=== PATIENT | female | born 2000 | race Caucasian/White ===

== ENCOUNTER 2025-09-09 12:39 | Emergency (ER) | payer OTHER, BC ==
[2025-09-09] MEDS ORDERED: Acetaminophen 500 MG TAB ONE (15:18)
[2025-09-09] MEDS ORDERED: Ketorolac Tromethamine 30 MG (1 mL) VIAL ONE (15:56)
[2025-09-09] MEDS ORDERED: Dexamethasone 10 MG/ML VIAL ONE (15:56)
== END 2025-09-09 16:15 | disposition home or self-care (01) ==
LOC: CSHERS 12:39
DX: J10.1 Influenza due to other identified influenza virus with other respiratory manifestations (principal)
CPT/HCPCS: 87081; 87428; 87430; 96372; 99283; J1100; J1885